=== PATIENT | male | born 1970 | race Caucasian/White ===

== ENCOUNTER 2022-05-06 05:58 | Emergency (ER) | payer OTHER ==
[~2022-05-06] VITALS: Ht 167.6 cm; Wt 71.7 kg
[2022-05-06 06:14] VITALS: BP_SYST 141
--- NOTE | 2022-05-06 06:30 | NUR ---
Patient to ER bed 6 to gown for evaluation. Side rails up.
--- NOTE | 2022-05-06 06:30 | NUR ---
ER at bedside examining patient.
--- NOTE | 2022-05-06 06:30 | NUR ---
Patient triaged and placed in room 6. VSS and patient appears in no acute distress at this time. Accompanied by SELF, awaiting available bed, and MD notified of need for MSE.
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
--- NOTE | 2022-05-06 07:01 | NUR ---
RETURNED FROM RADIOLOGY AFTER TESTING.
--- NOTE | 2022-05-06 07:08 | NUR ---
RECEIVED REPORT FROM ANDRES, WILL ASSUME CARE
[2022-05-06] MEDS ORDERED: KETOROLAC TROMETHAMINE 60 MG/2 ML VIAL IM ONE (07:15)
--- NOTE | 2022-05-06 07:41 | NUR ---
MEDICATED ORDERED. WILL MONITOR
--- NOTE | 2022-05-06 08:25 | NUR ---
PT RETURNING FROM XRAY DEPT, RETURNED TO BED #6.
[2022-05-06] MEDS ORDERED: NAPR-1172 PO (08:50)
--- NOTE | 2022-05-06 09:07 | NUR ---
Patient given written and verbal discharge instructions and verbalizes understanding. ER MD discussed with patient the results and treatment provided. Patient in stable condition. ID arm band removed. Rx of NAPROSYN given. Patient educated on pain management and to follow up with PMD. Pain Scale 0/10. Opportunity for questions provided and answered. Medication side effect fact sheet provided.
== END 2022-05-06 09:07 | disposition home or self-care (01) ==
LOC: SED 05:58
DX: S33.5XXA Sprain of ligaments of lumbar spine, initial encounter (principal); S43.402A Unspecified sprain of left shoulder joint, initial encounter; E11.9 Type 2 diabetes mellitus without complications; Z79.899 Other long term (current) drug therapy; W24.0XXA Contact with lifting devices, not elsewhere classified, initial encounter; Y93.89 Activity, other specified; Y92.89 Other specified places as the place of occurrence of the external cause; Y99.8 Other external cause status
CPT/HCPCS: 99285; 70450; 73030; 72125; 72131; 96372; 76376; J1885